=== PATIENT | male | born 1960 | race Caucasian/White ===

== ENCOUNTER 2017-06-16 20:39 | Emergency (ER) | payer OTHER ==
[~2017-06-16] VITALS: Ht 182.9 cm; Wt 87.5 kg
[2017-06-16 20:53] VITALS: BP 172/78
--- NOTE | 2017-06-16 21:37 | ED GENERAL ADULT ---
History of Present Illness General Chief Complaint: Laceration Procedure Stated Complaint: LAC TO L HAND MIDDLE FINGER Source: patient Exam Limitations: no limitations Vital Signs & Intake/Output Vital Signs & Intake/Output ED Intake and Output 06/17 0000 06/16 1200 Intake Total Output Total Balance Patient 193 lb Weight Weight Reported by Patient Measurement Method Allergies Coded Allergies: bacitracin (UNKNOWN 08/21/15) Triage Note: PT FROM HOME C/O LAC TO LEFT MIDDLE FINGER THAT HAPPENED AROUND 1100 FROM INJURY. PT STATES HE WAS WORKING ON HIS CAR AND WAS CUT CAUSING A LAC TO PTS LEFT MIDDLE FINGER. RAYMUNDO BLUM IN TRIAGE FOR EVAL. PT DENIES BLOOD THINNERS AND STATES TETANUS SHOT WITHIN THE PAST 6 YEARS. PTS VSS, AFEBRILE. Triage Nurses Notes Reviewed? yes Onset: Abrupt Duration: hour(s): (10), better, continues in ED Timing: single episode today Injury Environment: home Severity: mild, moderate Severity Numbers: 5 No Modifying Factors: none HPI: 57 year old ,male with pmh of anxiety presnts for eval of a lac to his left third digit. he rpeorts he was working on his car when he accidently cut the finger about 11 hours ago. he cleaned the wound and put a dressing on but it continued to bleed so he came in. He is up-to-date on tetanus. No numbness or tingling. He is able to move the finger without difficulty. No other injuries. (Malcolm Kumari) Past History Travel History Traveled to [place] past 21 day No Medical History Any Pertinent Medical History? see below for history Psychiatric: anxiety Surgical History Surgical History: unobtainable Psychosocial History What is your primary language Turkish Tobacco Use: Never used Family History Hx Contributory? No (Malcolm Kumari) Review of Systems Review of Systems Constitutional: Reports: no symptoms. EENTM: Reports: no symptoms. Respiratory: Reports: no symptoms. Cardiovascular: Reports: no symptoms. GI: Reports: no symptoms. Genitourinary: Reports: no symptoms. Musculoskeletal: Reports: no symptoms. Skin: Reports: see HPI (lac). Neurological/Psychological: Reports: no symptoms. Hematologic/Endocrine: Reports: no symptoms. Immunologic/Allergic: Reports: no symptoms. All Other Systems: Reviewed and Negative (Malcolm Kumari) Physical Exam Physical Exam General Appearance: well developed/nourished, no apparent distress, alert, awake Head: atraumatic, normal appearance Eyes: Bilateral: normal appearance, EOMI. Ears, Nose, Throat: hearing grossly normal Neck: normal inspection, full range of motion Respiratory: no respiratory distress Cardiovascular: normal peripheral pulses Peripheral Pulses: 2+ radial (R), 2+ radial (L) Extremities: normal range of motion, there is a 0.5 cm superficial linear laceration over dorsum of the middle segment of the left third digit. Very small amount of active bleeding.full range of motion intact. Neurovascular supply intact. No subcutaneous tissue Neurologic/Psych: no motor/sensory deficits, awake, alert, oriented x 3, normal gait, normal mood/affect Skin: intact, normal color, warm/dry Core Measures ACS in differential dx? No CVA/TIA Diagnosis: No Sepsis Present: No Sepsis Focused Exam Completed? No (Malcolm Kumari) Progress Differential Diagnoses I considered the following diagnoses in my evaluation of the patient: [ Laceration, abrasion, foreign body] Plan of Care: Patient seen and evaluated. He has a superficial laceration to the dorsum of the left third digit. The area was cleaned with sterile water and Betadine. Dermabond and Steri-Strips applied to approximate the wound. Patient is up-to- date on tetanus. Keep the area clean and dry change dressing once daily. Discussed wound care procedures. Tylenol or ibuprofen for pain. [employer] for signs of infection. Follow-up in 3 days for wound check. Return sooner with any concerns. Initial ED EKG: none (Malcolm Kumari) Departure Departure Disposition: HOME OR SELF CARE Condition: Stable Clinical Impression Primary Impression: Finger laceration Qualifiers: Encounter type: initial encounter Finger: index finger Damage to nail status: without damage Foreign body presence: without foreign body Laterality: left Qualified Code: S61.211A - Laceration without foreign body of left index finger without damage to nail, initial encounter Referrals: Giancarlo PATEL,Jorge Paiz (PCP/Family) Additional Instructions: Keep area clean and dry. Water will dissolve the glue SO YOU NEED to keep it dry. Tylenol or ibuprofen as needed for pain. Try to avoid bending YOUr finger. Change dressing once daily. The glue DISSOLVES ON IT OWN in a few days. Look out for signs of infection. Follow-up with YOUr primary care doctor in a few days for wound check. Return sooner with any concerns. Departure Forms: Customer Survey General Discharge Information (Malcolm Kumari) PA/DIALYSIS SOCIAL WORKER Co-Sign Statement Statement: ED Attending supervision documentation- I saw and evaluated the patient. I have also reviewed all the pertinent lab results and diagnostic results. I agree with the findings and the plan of care as documented in the PA's/DIALYSIS SOCIAL WORKER's documentation. x I have reviewed the ED Record and agree with the PA's/DIALYSIS SOCIAL WORKER's documentation. [] Additions or exceptions (if any) to the PAs/DIALYSIS SOCIAL WORKER's note and plan are summarized below: [] (Gretel PATEL,Romario) Critical Care Note Critical Care Note Critical Care Time: non-applicable (Malcolm Kumari) ED Attending Observation Initial Observation Note: I have seen and personally examined KIMBER NDIAYE on 06/17/17 at 2017. I agree with the current emergency department documentation. The disposition (admission or discharge) is uncertain at this time, he needs a period of observation for the following reason(s): The ED Nurse caring for this patient has been personally informed as to what the patient is being observed for. (Malcolm Kumari)
== END 2017-06-16 21:44 ==
LOC: ERH 20:39
DX: S61.213A Laceration without foreign body of left middle finger without damage to nail, initial encounter (principal); W45.8XXA Other foreign body or object entering through skin, initial encounter; Y92.009 Unspecified place in unspecified non-institutional (private) residence as the place of occurrence of the external cause; Y93.9 Activity, unspecified